=== PATIENT | male | born 1960 | race Caucasian/White ===

== ENCOUNTER 2018-06-25 15:14 | Outpatient (CLI) | payer BC | END 2018-06-25 15:15 | disposition home or self-care (01) | LOC: SC 15:14 | PROVIDERS: ATTEND Internal Medicine Pulmonary Disease | DX: G47.33 Obstructive sleep apnea (adult) (pediatric) (principal) | CPT/HCPCS: 99203; 99212 ==

== ENCOUNTER 2019-11-26 14:25 | Outpatient (CLI) | payer BC ==
--- NOTE | 2019-11-27 14:15 | Ultrasound Report ---
Reason: NONSPEC ELEV OF LEVELS OF TRANSAMNS LACTIC ACID Procedure Date: 11/26/2019 Accession Number: [id number] / [id number] Procedure: US - Abdomen Complete CPT Code: Final Report FULL RESULT: EXAM: ABDOMEN ULTRASOUND EXAM DATE: 11/26/2019 02:30 PM. CLINICAL HISTORY: NONSPEC ELEV OF LEVELS OF TRANSAMNS LACTIC ACID. COMPARISON: ABDOMEN/PELVIS W/ 05/31/2014 6:44 PM. TECHNIQUE: Real-time scanning was performed with static images obtained. FINDINGS: Liver: Liver is diffusely echogenic. Right lobe is 21.3 cm. Main portal vein flow: Hepatopetal. Gallbladder: Multiple gallstones. No abnormal wall thickening or sonographic Mckeon sign. Biliary System: Common bile duct measures 5 mm. No intrahepatic ductal dilatation. Pancreas: The visualized portions are unremarkable. Kidneys: Right: 12.6 cm longitudinally. No contour-deforming mass, shadowing stones, or hydronephrosis. Left: 12.4 cm longitudinally. No contour-deforming mass, shadowing stones, or hydronephrosis. Spleen: 9 cm Imaged portions of the aorta and IVC are unremarkable. IMPRESSION: Diffuse hepatic steatosis. Cholelithiasis. RADIA
== END 2019-11-26 14:26 | disposition home or self-care (01) ==
LOC: DI 14:25
PROVIDERS: ATTEND Family Medicine
DX: R74.0 Nonspecific elevation of levels of transaminase and lactic acid dehydrogenase [LDH] (principal); K76.0 Fatty (change of) liver, not elsewhere classified; K80.20 Calculus of gallbladder without cholecystitis without obstruction
CPT/HCPCS: 76700